=== PATIENT | female | born 1995 | race Hispanic/Latino ===

== ENCOUNTER 2020-11-15 14:21 | Emergency (ER) | payer OTHER ==
[~2020-11-15] VITALS: Ht 172.7 cm; Wt 84.6 kg
--- NOTE | 2020-11-15 16:03 | REP ---
INDICATION: fell approx 8-10 feet. COMPARISON: None. TECHNIQUE: Axial CT images with multiplanar reformations. FINDINGS: No acute bleed or acute large vessel territorial infarct. Ventricles, cisterns and sulci are within normal limits. No mass effect or midline shift. No abnormal fluid collections. Paranasal sinuses and mastoid air cells are clear IMPRESSION: No acute bleed or fracture. <Electronically signed by Myles Canseco > 11/15/20 [id number]
--- NOTE | 2020-11-15 16:04 | REP ---
INDICATION: pain after falling approx 8-10 feet. COMPARISON: None. TECHNIQUE: Axial CT images with multiplanar reformations. FINDINGS: No evidence of fracture or subluxation. Vertebral heights and disc heights are overall preserved. Prevertebral soft tissues within normal limits. Spinal canal and neural foramen appear widely patent. IMPRESSION: No acute fracture or subluxation. <Electronically signed by Myles Canseco > 11/15/20 [id number]
[2020-11-15 17:22] VITALS: BP 146/86
== END 2020-11-15 18:23 | disposition home or self-care (01) ==
LOC: M ED 14:21
DX: S16.1XXA Strain of muscle, fascia and tendon at neck level, initial encounter (principal); M54.5 Low back pain; W17.89XA Other fall from one level to another, initial encounter; Y92.9 Unspecified place or not applicable; Y93.A5 Activity, obstacle course; Y99.9 Unspecified external cause status